=== PATIENT | male | born 1985 | race Caucasian/White ===

== ENCOUNTER 2020-01-10 19:26 | Emergency (ER) | payer OTHER ==
[~2020-01-10] VITALS: Ht 170.2 cm; Wt 79.4 kg
[2020-01-10 19:27] VITALS: Ht 170.2 cm; Wt 79.4 kg
[2020-01-10 21:12] VITALS: BP 110/62
== END 2020-01-10 21:13 | disposition other institution (70) ==
LOC: ED 19:26
DX: S61.011A Laceration without foreign body of right thumb without damage to nail, initial encounter (principal); S61.213D Laceration without foreign body of left middle finger without damage to nail, subsequent encounter; W45.8XXA Other foreign body or object entering through skin, initial encounter; Y93.39 Activity, other involving climbing, rappelling and jumping off; Y92.89 Other specified places as the place of occurrence of the external cause; Y99.8 Other external cause status

== ENCOUNTER 2020-01-10 19:26 | Emergency (ER) | payer OTHER | END 2020-01-10 21:13 | disposition other institution (70) | LOC: ED 19:26 | DX: Z02.89 Encounter for other administrative examinations (principal) ==